=== PATIENT | male | born 1930 | race Two or more races ===

== ENCOUNTER 2016-08-28 12:16 | Inpatient (IN) | payer OTHER ==
[~2016-08-28] VITALS: Ht 180.3 cm; Wt 84.5 kg
[2016-08-28] VITALS (10 sets, daily range): BP systolic 95–122; BP diastolic 54–82
[2016-08-28 12:50] LABS: Basophils # (auto) 0 uL; Basophils % (auto) 0.5 % (0.0-2.0); DEFINITIVE VIEW TRANSMISSION; Eosinophils # (auto) 0 uL; Eosinophils % (auto) 0.1 % (0.0-7.0); Hematocrit 21.5 % (41.0-53.0); Lymphocytes # (auto) 0.7 uL; Lymphocytes % (auto) 11.5 % (10.0-50.0); Mean Corpuscular Hgb Conc. 32.5 g/dL (32.0-36.0); Mean Corpuscular Volume 88.9 fL (80.0-100.0); Mean Platelet Volume 8.4 fL (7.4-10.4); Monocytes # (auto) 0.5 uL; Monocytes % (auto) 7.5 % (0.0-12.0); Neutrophils # (auto) 4.9 uL; Neutrophils % (auto) 80.4 % (37.0-80.0); Platelet Count (auto) 313 10^3/uL (140-450); Red Cell Distribution Width 16.2 % (11.6-16.0)
[2016-08-28 13:07] LABS: Albumin 3.5 g/dL (3.4-5.0); BUN/Creatinine Ratio 11.5; Bilirubin, Total 0.4 mg/dL (0.2-1.0); Calcium 8.1 mg/dL (8.5-10.1); Potassium 3.6 mmol/L (3.5-5.1); Total Protein 7.2 g/dL (6.4-8.2)
[2016-08-28 15:18] LABS: INR 1.1 (0.9-1.15); Prothrombin Time 11.3 sec (9.37-12.3)
[2016-08-28 16:29] LABS: Urine Bilirubin Negative (Negative); Urine Blood Negative /uL (Negative); Urine Color Yellow (Yellow); Urine Ketone Negative (Negative); Urine Nitrite Negative (Negative); Urine RBC 2 /hpf (0 - 3); Urine Urobilinogen Normal (Negative)
[2016-08-28 16:55] LABS: Urine Glucose 3+ mg/dL (Normal)
[2016-08-28] MEDS ORDERED: SUCCINYLCHOLINE CHLORIDE 20 MG/ML 10ML VIAL IV ONE ×2 (21:13→21:30)
[2016-08-28] MEDS ORDERED: ETOMIDATE (2MG/ML) 20ML VIAL IV ONE ×2 (21:13→21:30)
[2016-08-28] MEDS ORDERED: MIDAZOLAM DRIP 100 mg/100mL NS 100 ML IV ONE (21:20)
[2016-08-28] MEDS ORDERED: ONDANSETRON HCL 4 MG/2 ML VIAL IV PRN (21:30)
[2016-08-28] MEDS ORDERED: LORazepam 2MG/ML-1ML VIAL IV PRN (21:30)
[2016-08-28] MEDS ORDERED: cefTRIAXone 1GM/50ML D5W 50 ML IV ONE (21:30)
[2016-08-28] MEDS ORDERED: NITROGLYCERIN 0.4 MG SL TAB SL PRN (21:30)
[2016-08-28] MEDS ORDERED: ACETAMINOPHEN 325 MG TAB PO PRN (21:30)
[2016-08-28] MEDS ORDERED: MIDAZOLAM DRIP 100 mg/100mL NS 100 ML IV SCH (21:30)
[2016-08-28] MEDS ORDERED: MORPHINE SULF INJ 2 MG/ML SYRINGE 1ML IV PRN ×4 (21:30)
[2016-08-28] MEDS: MIDAZOLAM DRIP 100 mg/100mL NS 100 ML IV SCH (21:59)
[2016-08-28] MEDS: SODIUM CHLORIDE 0.9% 1,000 ML IV SCH (22:09)
[2016-08-28] MEDS: ENOXAPARIN SOD 30 MG/0.3 ML SYRINGE SC SCH (22:11)
[2016-08-28] MEDS: IPRATROPIUM BROM 0.5 MG/2.5ML INH SOL NEB SCH (22:18)
[2016-08-28] MEDS: ALBUTEROL SULF 2.5 MG/0.5ML(0.5%) NEB SOLN NEB PRN (22:19)
[2016-08-28] MEDS: FAMOTIDINE (10MG/ML) 2ML VL IV SCH (22:39)
[2016-08-28] MEDS: fentaNYL Drip 2500mCg/250mlNS 250 ML IV SCH (23:35)
[2016-08-29] VITALS (12 sets, daily range): BP systolic 80–105; BP diastolic 48–66
[2016-08-29 00:44] LABS: Hematocrit 24.6 % (41.0-53.0); Hemoglobin 8.1 g/dL (13.5-17.5)
[2016-08-29] MEDS: IPRATROPIUM BROM 0.5 MG/2.5ML INH SOL NEB SCH ×6 (01:55→22:34)
[2016-08-29 05:52] LABS: Basophils # (auto) 0 uL; Basophils % (auto) 0.4 % (0.0-2.0); DEFINITIVE VIEW TRANSMISSION; Eosinophils # (auto) 0 uL; Eosinophils % (auto) 0.1 % (0.0-7.0); Hematocrit 24.5 % (41.0-53.0); Hemoglobin 8.1 g/dL (13.5-17.5); Lymphocytes # (auto) 0.9 uL; Lymphocytes % (auto) 9.9 % (10.0-50.0); Mean Corpuscular Hemoglobin 29.1 pg (28.0-32.0); Mean Corpuscular Volume 88.2 fL (80.0-100.0); Mean Platelet Volume 8.5 fL (7.4-10.4); Monocytes # (auto) 0.9 uL; Monocytes % (auto) 9.9 % (0.0-12.0); Neutrophils % (auto) 79.7 % (37.0-80.0); Platelet Count (auto) 254 10^3/uL (140-450); Red Cell Distribution Width 15.7 % (11.6-16.0); White Blood Cell 8.8 10^3/uL (4.4-10.8)
[2016-08-29 06:18] LABS: BUN/Creatinine Ratio 12.3; Calcium 7.7 mg/dL (8.5-10.1); Potassium 3.6 mmol/L (3.5-5.1)
[2016-08-29 06:21] LABS: Bilirubin, Total 0.3 mg/dL (0.2-1.0); Total Protein 6.4 g/dL (6.4-8.2)
[2016-08-29] MEDS: MIDAZOLAM DRIP 100 mg/100mL NS 100 ML IV SCH ×2 (11:00→18:32)
[2016-08-29] MEDS: SODIUM CHLORIDE 0.9% 1,000 ML IV SCH (11:00)
[2016-08-29] MEDS: FAMOTIDINE (10MG/ML) 2ML VL IV SCH ×2 (11:54→22:00)
[2016-08-29] MEDS: cefTRIAXone 1GM/50ML D5W 50 ML IV SCH (11:55)
[2016-08-29] MEDS: PANTOPRAZOLE SODIUM 40 MG/10 ML VIAL IV SCH (11:55)
[2016-08-29 15:10] LABS: B-Type Natriuretic Peptide 657.61 pg/mL (0-100); Temperature: 22.7 C (20.0-25.0)
[2016-08-29] MEDS: ENOXAPARIN SOD 30 MG/0.3 ML SYRINGE SC SCH (18:32)
[2016-08-29 20:50] LABS: Hemoglobin 8.3 g/dL (13.5-17.5)
[2016-08-29] MEDS: fentaNYL Drip 2500mCg/250mlNS 250 ML IV SCH (23:26)
[2016-08-30] VITALS (18 sets, daily range): BP systolic 88–128; BP diastolic 44–69
[2016-08-30] MEDS: SODIUM CHLORIDE 0.9% 1,000 ML IV SCH ×2 (02:03→13:03)
[2016-08-30] MEDS: IPRATROPIUM BROM 0.5 MG/2.5ML INH SOL NEB SCH ×6 (02:13→22:40)
[2016-08-30 04:20] LABS: Basophils # (auto) 0 uL; Basophils % (auto) 0.4 % (0.0-2.0); DEFINITIVE VIEW TRANSMISSION; Eosinophils # (auto) 0 uL; Eosinophils % (auto) 0.2 % (0.0-7.0); Hematocrit 24.3 % (41.0-53.0); Lymphocytes # (auto) 0.9 uL; Lymphocytes % (auto) 12.1 % (10.0-50.0); Mean Corpuscular Hemoglobin 29.1 pg (28.0-32.0); Mean Corpuscular Hgb Conc. 32.9 g/dL (32.0-36.0); Mean Corpuscular Volume 88.6 fL (80.0-100.0); Mean Platelet Volume 8.9 fL (7.4-10.4); Monocytes # (auto) 1.2 uL; Neutrophils # (auto) 5.4 uL; Neutrophils % (auto) 71.3 % (37.0-80.0); Platelet Count (auto) 250 10^3/uL (140-450); Red Cell Distribution Width 16.2 % (11.6-16.0); White Blood Cell 7.5 10^3/uL (4.4-10.8)
[2016-08-30 04:29] LABS: INR 1.13 (0.9-1.15); Prothrombin Time 11.6 sec (9.37-12.3)
[2016-08-30 04:42] LABS: Albumin 2.6 g/dL (3.4-5.0); Calcium 7.4 mg/dL (8.5-10.1); Magnesium 1.7 mg/dL (1.6-2.6); Potassium 3.6 mmol/L (3.5-5.1)
[2016-08-30 04:45] LABS: Bilirubin, Total 0.3 mg/dL (0.2-1.0); Total Protein 6.3 g/dL (6.4-8.2)
[2016-08-30] MEDS: MIDAZOLAM DRIP 100 mg/100mL NS 100 ML IV SCH ×2 (08:00→16:27)
[2016-08-30] MEDS: cefTRIAXone 1GM/50ML D5W 50 ML IV SCH (09:42)
[2016-08-30] MEDS: FAMOTIDINE (10MG/ML) 2ML VL IV SCH (09:43)
[2016-08-30] MEDS: PANTOPRAZOLE SODIUM 40 MG/10 ML VIAL IV SCH (09:43)
[2016-08-30] MEDS: fentaNYL Drip 2500mCg/250mlNS 250 ML IV SCH (10:18)
[2016-08-30 11:59] LABS: DEFINITIVE VIEW TRANSMISSION; Hematocrit 33.8 % (41.0-53.0); Hemoglobin 10.9 g/dL (13.5-17.5); Mean Corpuscular Hemoglobin 28.8 pg (28.0-32.0); Mean Corpuscular Hgb Conc. 32.3 g/dL (32.0-36.0); Mean Corpuscular Volume 89.2 fL (80.0-100.0); Mean Platelet Volume 9.1 fL (7.4-10.4); Platelet Count (auto) 233 10^3/uL (140-450); Red Cell Distribution Width 16.1 % (11.6-16.0); SUSPECT VIEW TRANSMISSION; White Blood Cell 12.1 10^3/uL (4.4-10.8)
[2016-08-30 12:13] LABS: Metamyelocytes % 0; Myelocytes % 0; Promyelocytes % 0; Reactive Lymphocytes 0
[2016-08-30] MEDS ORDERED: NOREPINEPHRINE BITARTRATE 250 ML IV ONE (12:20)
[2016-08-30] MEDS: NOREPINEPHRINE BITARTRATE 250 ML IV SCH (12:30)
[2016-08-30] MEDS ORDERED: MORPHINE SULF INJ 2 MG/ML SYRINGE 1ML IV PRN (13:15)
[2016-08-30] MEDS ORDERED: VANCOMYCIN PER PHARMACY 0 MG IV SCH (13:15)
[2016-08-30 14:31] LABS: Platelet Estimate Adequate; RBC Morphology Normal
[2016-08-30] MEDS: PIPERACILLIN-TAZOB 3.375GM 100 ML IV SCH ×2 (14:51→19:55)
[2016-08-30] MEDS: VANCOMYCIN 1,250 MG in D5W 5% 250 ML IV SCH (17:33)
[2016-08-30] MEDS: ENOXAPARIN SOD 30 MG/0.3 ML SYRINGE SC SCH (18:00)
[2016-08-30] MEDS: ALBUTEROL SULF 2.5 MG/0.5ML(0.5%) NEB SOLN NEB PRN (19:02)
[2016-08-31] VITALS (75 sets, daily range): BP systolic 85–119; BP diastolic 41–66
[2016-08-31] MEDS: MIDAZOLAM DRIP 100 mg/100mL NS 100 ML IV SCH (01:14)
[2016-08-31] MEDS: IPRATROPIUM BROM 0.5 MG/2.5ML INH SOL NEB SCH ×6 (02:01→22:17)
[2016-08-31] MEDS: PIPERACILLIN-TAZOB 3.375GM 100 ML IV SCH ×4 (02:22→20:00)
[2016-08-31] MEDS: fentaNYL Drip 2500mCg/250mlNS 250 ML IV SCH (02:25)
[2016-08-31 06:40] LABS: Basophils # (auto) 0 uL; Basophils % (auto) 0.2 % (0.0-2.0); DEFINITIVE VIEW TRANSMISSION; Eosinophils # (auto) 0 uL; Eosinophils % (auto) 0.1 % (0.0-7.0); Hemoglobin 10.8 g/dL (13.5-17.5); Lymphocytes # (auto) 0.5 uL; Lymphocytes % (auto) 3.4 % (10.0-50.0); Mean Corpuscular Hemoglobin 28.9 pg (28.0-32.0); Mean Corpuscular Hgb Conc. 32.9 g/dL (32.0-36.0); Mean Corpuscular Volume 87.9 fL (80.0-100.0); Mean Platelet Volume 8.9 fL (7.4-10.4); Monocytes # (auto) 2.1 uL; Monocytes % (auto) 15.8 % (0.0-12.0); Neutrophils # (auto) 10.9 uL; Neutrophils % (auto) 80.5 % (37.0-80.0); Platelet Count (auto) 220 10^3/uL (140-450); Red Cell Distribution Width 15.9 % (11.6-16.0); White Blood Cell 13.5 10^3/uL (4.4-10.8)
[2016-08-31] MEDS: ALBUTEROL SULF 2.5 MG/0.5ML(0.5%) NEB SOLN NEB PRN ×3 (06:41→13:48)
[2016-08-31 07:52] LABS: Prothrombin Time 12.1 sec (9.37-12.3)
[2016-08-31] MEDS: SODIUM CHLORIDE 0.9% 1,000 ML IV SCH ×2 (07:59→20:47)
[2016-08-31 08:01] LABS: INR 1.17 (0.9-1.15)
[2016-08-31] MEDS ORDERED: MIDAZOLAM HCL 5 MG/ML-1ML VIAL ONE (08:16)
[2016-08-31] MEDS ORDERED: SODIUM CHLORIDE LOCK 10 ML ONE (08:16)
[2016-08-31] MEDS ORDERED: diphenhdrAMINE HCL 50 MG/1 ML VL ONE (08:16)
[2016-08-31] MEDS ORDERED: fentaNYL CITRATE 100 MCG/2 ML VL ONE (08:17)
[2016-08-31 08:18] LABS: Albumin 2.5 g/dL (3.4-5.0); BUN/Creatinine Ratio 8.8; Bilirubin, Total 0.5 mg/dL (0.2-1.0); Magnesium 1.7 mg/dL (1.6-2.6); Potassium 3.5 mmol/L (3.5-5.1); Total Protein 6.2 g/dL (6.4-8.2)
[2016-08-31] MEDS ORDERED: LIDOCAINE VISCOUS 2% 15ML UD ONE (08:27)
[2016-08-31] MEDS ORDERED: BENZOCAINE (DENTAL) 20 % SPRAY 60ML MT ONE (08:30)
[2016-08-31] MEDS ORDERED: EPINEPHrine HCL 1 MG/10 ML SYRG ONE (08:30)
[2016-08-31] MEDS: PANTOPRAZOLE SODIUM 40 MG/10 ML VIAL IV SCH (10:06)
[2016-08-31] MEDS ORDERED: SIMV10TA84 PO (11:08)
[2016-08-31] MEDS ORDERED: METF-312 PO (11:08)
[2016-08-31] MEDS ORDERED: METH500T6 PO (11:08)
[2016-08-31] MEDS: NOREPINEPHRINE BITARTRATE 250 ML IV SCH (12:30)
[2016-08-31] MEDS: ENOXAPARIN SOD 30 MG/0.3 ML SYRINGE SC SCH (17:52)
[2016-08-31] MEDS: VANCOMYCIN 1,250 MG in D5W 5% 250 ML IV SCH (17:52)
[2016-09-01] VITALS (45 sets, daily range): BP systolic 104–138; BP diastolic 53–104
[2016-09-01] MEDS: PIPERACILLIN-TAZOB 3.375GM 100 ML IV SCH ×4 (02:00→20:17)
[2016-09-01] MEDS: IPRATROPIUM BROM 0.5 MG/2.5ML INH SOL NEB SCH ×3 (02:30→10:20)
[2016-09-01 04:09] LABS: Basophils # (auto) 0 uL; Basophils % (auto) 0.1 % (0.0-2.0); DEFINITIVE VIEW TRANSMISSION; Eosinophils # (auto) 0.1 uL; Eosinophils % (auto) 0.6 % (0.0-7.0); Hematocrit 31.9 % (41.0-53.0); Hemoglobin 10.3 g/dL (13.5-17.5); Lymphocytes # (auto) 0.6 uL; Lymphocytes % (auto) 6.2 % (10.0-50.0); Mean Corpuscular Hemoglobin 28.5 pg (28.0-32.0); Mean Corpuscular Hgb Conc. 32.3 g/dL (32.0-36.0); Mean Corpuscular Volume 88.4 fL (80.0-100.0); Mean Platelet Volume 8.9 fL (7.4-10.4); Monocytes # (auto) 1.7 uL; Neutrophils # (auto) 7.5 uL; Neutrophils % (auto) 76.1 % (37.0-80.0); Platelet Count (auto) 235 10^3/uL (140-450); Red Cell Distribution Width 16.1 % (11.6-16.0); White Blood Cell 9.9 10^3/uL (4.4-10.8)
[2016-09-01 04:26] LABS: Albumin 2.3 g/dL (3.4-5.0); BUN/Creatinine Ratio 8.7; Bilirubin, Total 0.6 mg/dL (0.2-1.0); Calcium 7.9 mg/dL (8.5-10.1); Magnesium 1.8 mg/dL (1.6-2.6); Potassium 3.4 mmol/L (3.5-5.1); Total Protein 6.1 g/dL (6.4-8.2)
[2016-09-01 05:05] LABS: INR 1.2 (0.9-1.15); Prothrombin Time 12.4 sec (9.37-12.3)
[2016-09-01] MEDS: ALBUTEROL SULF 2.5 MG/0.5ML(0.5%) NEB SOLN NEB PRN ×3 (06:19→14:49)
[2016-09-01] MEDS: PANTOPRAZOLE SODIUM 40 MG/10 ML VIAL IV SCH (09:25)
[2016-09-01] MEDS: NOREPINEPHRINE BITARTRATE 250 ML IV SCH (12:30)
[2016-09-01] MEDS: SODIUM CHLORIDE 0.9% 1,000 ML IV SCH (12:44)
[2016-09-01] MEDS ORDERED: DEXTROSE (50%) 50ML SYRG IV PRN (14:45)
[2016-09-01] MEDS: ACCU-CHEK COMFORT CURVE STRIP VI SCH ×2 (16:36→22:00)
[2016-09-01] MEDS: InsuLIN REG 1unit/0.01ml Soln (100units/ml) SC SCH ×2 (16:36→22:00)
[2016-09-01] MEDS: ENOXAPARIN SOD 30 MG/0.3 ML SYRINGE SC SCH (17:46)
[2016-09-02] MEDS: SODIUM CHLORIDE 0.9% 1,000 ML IV SCH ×2 (01:33→15:51)
[2016-09-02] MEDS: PIPERACILLIN-TAZOB 3.375GM 100 ML IV SCH ×4 (02:00→20:00)
[2016-09-02] MEDS: IPRATROPIUM BROM 0.5 MG/2.5ML INH SOL NEB SCH ×7 (04:30→22:52)
[2016-09-02] MEDS: ALBUTEROL SULF 2.5 MG/0.5ML(0.5%) NEB SOLN NEB PRN (05:30)
[2016-09-02 05:55] LABS: Basophils # (auto) 0 uL; Eosinophils # (auto) 0 uL; Eosinophils % (auto) 0.4 % (0.0-7.0); Hematocrit 30.4 % (41.0-53.0); Hemoglobin 9.8 g/dL (13.5-17.5); Lymphocytes # (auto) 0.5 uL; Lymphocytes % (auto) 5.7 % (10.0-50.0); Mean Corpuscular Hemoglobin 28.3 pg (28.0-32.0); Mean Corpuscular Hgb Conc. 32.1 g/dL (32.0-36.0); Mean Corpuscular Volume 88.2 fL (80.0-100.0); Mean Platelet Volume 8.6 fL (7.4-10.4); Monocytes # (auto) 0.9 uL; Monocytes % (auto) 11.1 % (0.0-12.0); Neutrophils # (auto) 6.7 uL; Neutrophils % (auto) 82.8 % (37.0-80.0); Platelet Count (auto) 228 10^3/uL (140-450); Red Cell Distribution Width 15.9 % (11.6-16.0); White Blood Cell 8.1 10^3/uL (4.4-10.8)
[2016-09-02 06:20] LABS: Calcium 8.3 mg/dL (8.5-10.1); Magnesium 1.7 mg/dL (1.6-2.6); Potassium 3.4 mmol/L (3.5-5.1)
[2016-09-02] MEDS: ACCU-CHEK COMFORT CURVE STRIP VI SCH ×4 (06:33→22:00)
[2016-09-02] MEDS: InsuLIN REG 1unit/0.01ml Soln (100units/ml) SC SCH ×4 (06:34→22:00)
[2016-09-02] MEDS ORDERED: NITROGLYCERIN 0.4 MG SL TAB SL PRN ×2 (07:30)
[2016-09-02] MEDS ORDERED: MORPHINE SULF INJ 2 MG/ML SYRINGE 1ML IV PRN ×2 (07:30)
[2016-09-02 09:00] VITALS: BP 122/72
[2016-09-02] MEDS: PANTOPRAZOLE SODIUM 40 MG/10 ML VIAL IV SCH (10:02)
[2016-09-02 13:00] VITALS: BP 127/69
[2016-09-02] MEDS: SODIUM CHLOR 0.9% PF (SALINE LOCK) 10ML VIAL IV SCH ×2 (14:12→22:00)
[2016-09-02] MEDS ORDERED: POTASSIUM CHL 20 Meq TABLET PO ONE (15:30)
[2016-09-02 17:00] VITALS: BP 122/68
[2016-09-02] MEDS: ENOXAPARIN SOD 30 MG/0.3 ML SYRINGE SC SCH (17:57)
[2016-09-02 22:00] VITALS: BP 137/77
[2016-09-03] MEDS: PIPERACILLIN-TAZOB 3.375GM 100 ML IV SCH ×4 (02:18→20:16)
[2016-09-03] MEDS: IPRATROPIUM BROM 0.5 MG/2.5ML INH SOL NEB SCH ×6 (02:20→22:50)
[2016-09-03 05:00] VITALS: BP 132/70
[2016-09-03 05:55] LABS: Basophils # (auto) 0 uL; Basophils % (auto) 0.5 % (0.0-2.0); Eosinophils # (auto) 0.1 uL; Eosinophils % (auto) 1.2 % (0.0-7.0); Hematocrit 33.9 % (41.0-53.0); Hemoglobin 10.9 g/dL (13.5-17.5); Lymphocytes # (auto) 0.7 uL; Lymphocytes % (auto) 10.2 % (10.0-50.0); Mean Corpuscular Hemoglobin 28.4 pg (28.0-32.0); Mean Corpuscular Hgb Conc. 32.2 g/dL (32.0-36.0); Mean Corpuscular Volume 88.2 fL (80.0-100.0); Mean Platelet Volume 8.8 fL (7.4-10.4); Monocytes # (auto) 0.5 uL; Monocytes % (auto) 8.5 % (0.0-12.0); Neutrophils # (auto) 5.2 uL; Neutrophils % (auto) 79.6 % (37.0-80.0); Platelet Count (auto) 224 10^3/uL (140-450); Red Cell Distribution Width 15.8 % (11.6-16.0); White Blood Cell 6.5 10^3/uL (4.4-10.8)
[2016-09-03] MEDS: SODIUM CHLOR 0.9% PF (SALINE LOCK) 10ML VIAL IV SCH ×3 (06:00→21:42)
[2016-09-03] MEDS: SODIUM CHLORIDE 0.9% 1,000 ML IV SCH ×2 (06:09→21:42)
[2016-09-03 06:14] LABS: Potassium 3.6 mmol/L (3.5-5.1)
[2016-09-03 06:22] LABS: BUN/Creatinine Ratio 9.9; Calcium 8.2 mg/dL (8.5-10.1)
[2016-09-03] MEDS: ALBUTEROL SULF 2.5 MG/0.5ML(0.5%) NEB SOLN NEB PRN ×3 (06:58→13:31)
[2016-09-03] MEDS: InsuLIN REG 1unit/0.01ml Soln (100units/ml) SC SCH ×4 (07:00→22:20)
[2016-09-03] MEDS: ACCU-CHEK COMFORT CURVE STRIP VI SCH ×4 (07:16→21:42)
[2016-09-03 09:00] VITALS: BP 125/76
[2016-09-03] MEDS: PANTOPRAZOLE SODIUM 40 MG/10 ML VIAL IV SCH (10:10)
[2016-09-03 13:00] VITALS: BP 128/70
[2016-09-03 17:00] VITALS: BP 134/71
[2016-09-03] MEDS: ENOXAPARIN SOD 30 MG/0.3 ML SYRINGE SC SCH (18:31)
[2016-09-03 22:00] VITALS: BP 127/73
[2016-09-04 00:01] VITALS: BP 127/73
[2016-09-04] MEDS: PIPERACILLIN-TAZOB 3.375GM 100 ML IV SCH ×3 (02:02→13:50)
[2016-09-04] MEDS: IPRATROPIUM BROM 0.5 MG/2.5ML INH SOL NEB SCH ×6 (02:56→22:09)
[2016-09-04 05:00] VITALS: BP 121/68
[2016-09-04] MEDS: SODIUM CHLOR 0.9% PF (SALINE LOCK) 10ML VIAL IV SCH ×3 (06:11→22:56)
[2016-09-04] MEDS: InsuLIN REG 1unit/0.01ml Soln (100units/ml) SC SCH ×3 (06:15→17:00)
[2016-09-04] MEDS: ACCU-CHEK COMFORT CURVE STRIP VI SCH ×4 (06:15→22:00)
[2016-09-04 09:09] VITALS: BP 114/61
[2016-09-04] MEDS: PANTOPRAZOLE SODIUM 40 MG/10 ML VIAL IV SCH (09:43)
[2016-09-04] MEDS: SODIUM CHLORIDE 0.9% 1,000 ML IV SCH (10:53)
[2016-09-04 11:45] VITALS: BP 117/54
[2016-09-04 17:00] VITALS: BP 118/65
[2016-09-04] MEDS: ENOXAPARIN SOD 30 MG/0.3 ML SYRINGE SC SCH (18:15)
[2016-09-04] MEDS ORDERED: FUROSEMIDE 20 MG/2 ML VIAL IV ONE (19:30)
[2016-09-04 22:00] VITALS: BP 113/63
[2016-09-05] MEDS: IPRATROPIUM BROM 0.5 MG/2.5ML INH SOL NEB SCH ×6 (02:25→22:51)
[2016-09-05 05:00] VITALS: BP 115/74
[2016-09-05] MEDS: SODIUM CHLOR 0.9% PF (SALINE LOCK) 10ML VIAL IV SCH ×3 (06:20→22:38)
[2016-09-05] MEDS: ACCU-CHEK COMFORT CURVE STRIP VI SCH ×4 (06:33→22:38)
[2016-09-05] MEDS: ALBUTEROL SULF 2.5 MG/0.5ML(0.5%) NEB SOLN NEB PRN ×5 (06:36→23:22)
[2016-09-05 08:30] VITALS: BP 118/66
[2016-09-05] MEDS: LEVOFLOXACIN 500 MG TAB PO SCH (10:40)
[2016-09-05] MEDS: FUROSEMIDE 20 MG TAB PO SCH (10:44)
[2016-09-05] MEDS: PANTOPRAZOLE SODIUM 40 MG/10 ML VIAL IV SCH (10:52)
[2016-09-05] MEDS ORDERED: FUR20T PO (11:47)
[2016-09-05] MEDS ORDERED: PANT40TA2 PO (11:47)
[2016-09-05] MEDS ORDERED: POTA10TA34 PO (11:47)
[2016-09-05 13:00] VITALS: BP 120/70
[2016-09-05 16:00] VITALS: BP 108/62
[2016-09-05] MEDS: ENOXAPARIN SOD 30 MG/0.3 ML SYRINGE SC SCH (18:12)
[2016-09-05 21:30] VITALS: BP 119/67
[2016-09-06] MEDS: IPRATROPIUM BROM 0.5 MG/2.5ML INH SOL NEB SCH ×4 (03:08→12:01)
[2016-09-06 05:09] VITALS: BP 128/87
[2016-09-06] MEDS: ACCU-CHEK COMFORT CURVE STRIP VI SCH ×2 (05:33→11:30)
[2016-09-06] MEDS: SODIUM CHLOR 0.9% PF (SALINE LOCK) 10ML VIAL IV SCH ×2 (05:33→14:20)
[2016-09-06] MEDS: FUROSEMIDE 20 MG TAB PO SCH (09:14)
[2016-09-06] MEDS: LEVOFLOXACIN 500 MG TAB PO SCH (09:14)
[2016-09-06] MEDS: PANTOPRAZOLE SODIUM 40 MG/10 ML VIAL IV SCH (09:14)
[2016-09-06 09:21] VITALS: BP 130/56
[2016-09-06 12:33] VITALS: BP 130/56
== END 2016-09-06 15:00 | disposition home health service (06) | DRG 871 ==
LOC: ER 12:20 → TELE 12:21 → ICU WEST 08-31 03:21 → TELE-WESTW 09-01 17:27
PROVIDERS: ADMIT Internal Medicine; ATTEND Internal Medicine
PROC: 5A1945Z Respiratory Ventilation, 24-96 Consecutive Hours (ICD-10-PCS; principal; 2016-08-28)
PROC: 0BH17EZ Insertion of Endotracheal Airway into Trachea, Via Natural or Artificial Opening (ICD-10-PCS; 2016-08-28)
PROC: 30233N1 Transfusion of Nonautologous Red Blood Cells into Peripheral Vein, Percutaneous Approach (ICD-10-PCS; 2016-08-28)
PROC: 0DJ08ZZ Inspection of Upper Intestinal Tract, Via Natural or Artificial Opening Endoscopic (ICD-10-PCS; 2016-08-31)
DX: A41.9 Sepsis, unspecified organism (principal); I50.43 Acute on chronic combined systolic (congestive) and diastolic (congestive) heart failure; R65.21 Severe sepsis with septic shock; G93.41 Metabolic encephalopathy; J96.01 Acute respiratory failure with hypoxia; I13.0 Hypertensive heart and chronic kidney disease with heart failure and stage 1 through stage 4 chronic kidney disease, or unspecified chronic kidney disease; N39.0 Urinary tract infection, site not specified; Z99.11 Dependence on respirator [ventilator] status; N18.9 Chronic kidney disease, unspecified; E11.22 Type 2 diabetes mellitus with diabetic chronic kidney disease; E11.65 Type 2 diabetes mellitus with hyperglycemia; E78.5 Hyperlipidemia, unspecified; J32.9 Chronic sinusitis, unspecified; D64.9 Anemia, unspecified; Z82.49 Family history of ischemic heart disease and other diseases of the circulatory system; Z83.3 Family history of diabetes mellitus; J44.9 Chronic obstructive pulmonary disease, unspecified; B96.1 Klebsiella pneumoniae [K. pneumoniae] as the cause of diseases classified elsewhere; K29.70 Gastritis, unspecified, without bleeding
CPT/HCPCS: 31500; 36415; 36430; 36600; 51702; 70450; 71010; 80048; 80053; 80061; 81001; 82550; 82805; 82962; 83036; 83735; 83880; 84484; 85007; 85014; 85018; 85025; 85027; 85610; 86850; 86900; 86901; 86920; 87040; 87070; 87081; 87086; 87088; 87186; 87205; 92610; 93005; 93306; 94002; 94003; 94640; 95819; 96365; 97001; 97110; 97116; 97530; C9113; J0330; J0696; J1815; J2250; J2543; J3010; J3490; J7060